=== PATIENT | female | born 1955 | race Caucasian/White ===

== ENCOUNTER 2024-02-27 07:32 | Day surgery (SDC) | payer MEDICARE ==
[2024-02-27] MEDS ORDERED: Lidocaine 1% w/Epinephrine 1:200K 30 ML VIAL ONE (08:03)
[2024-02-27] MEDS ORDERED: Lidocaine 1% (PF) 30 ML VIAL ONE (08:03)
[2024-02-27 08:22] VITALS: BP 119/53; TEMP 96.9
[2024-02-27] MEDS ORDERED: FLU (Fluad Triv) TS24-25 (65UP)/MF59C/PF 45 MCG/0.5 ML Syringe IM ONE (08:45)
== END 2024-02-27 09:00 | disposition home or self-care (01) ==
LOC: CSHSDC 07:32
PROVIDERS: ATTEND Specialist
PROC: 0JPT02Z Removal of Monitoring Device from Trunk Subcutaneous Tissue and Fascia, Open Approach (ICD-10-PCS; principal; 2024-02-27)
DX: Z45.09 Encounter for adjustment and management of other cardiac device (principal); I65.23 Occlusion and stenosis of bilateral carotid arteries; I25.10 Atherosclerotic heart disease of native coronary artery without angina pectoris; E78.2 Mixed hyperlipidemia; J44.9 Chronic obstructive pulmonary disease, unspecified; Z90.49 Acquired absence of other specified parts of digestive tract; Z90.710 Acquired absence of both cervix and uterus; Z98.890 Other specified postprocedural states; Z87.891 Personal history of nicotine dependence; Z79.899 Other long term (current) drug therapy; Z79.82 Long term (current) use of aspirin
CPT/HCPCS: 33286; 93005; 93010; J2001